=== PATIENT | male | born 1970 | race African-American/Black ===

== ENCOUNTER 2020-03-13 08:08 | Emergency (ER) | payer OTHER ==
[~2020-03-13] VITALS: Ht 177.8 cm; Wt 79.5 kg
[2020-03-13] MEDS ORDERED: IBUPROFEN 800 MG TABLET PO ONE (09:45)
[2020-03-13 10:01] VITALS: BP 156/88
== END 2020-03-13 10:10 | disposition home or self-care (01) ==
LOC: EMS 08:15
DX: S63.602A Unspecified sprain of left thumb, initial encounter (principal); F12.90 Cannabis use, unspecified, uncomplicated; F17.210 Nicotine dependence, cigarettes, uncomplicated; V00.131A Fall from skateboard, initial encounter; Y93.51 Activity, roller skating (inline) and skateboarding; Y92.89 Other specified places as the place of occurrence of the external cause; Y99.8 Other external cause status
CPT/HCPCS: 99406